=== PATIENT | female | born 1965 | race Caucasian/White ===

== ENCOUNTER 2022-07-21 14:23 | Inpatient (IN) | payer OTHER ==
[2022-07-21 14:42] VITALS: BMI 33.2
[2022-07-21] MEDS ORDERED: Ondansetron ODT 4 MG TAB PO PRN (15:29)
[2022-07-21] MEDS ORDERED: Acetaminophen 325 MG TAB PO PRN (15:29)
[2022-07-21] MEDS ORDERED: Nitroglycerin 0.4 MG TAB (25 Tab Bottle) SL PRN (15:30)
[2022-07-21] MEDS ORDERED: ALPRAZolam 0.25 MG TAB PO PRN (15:31)
[2022-07-21] MEDS ORDERED: Communication Order-Pharmacy FS SCH ×3 (15:31→16:45)
[2022-07-21] MEDS ORDERED: Electrolyte Replacement Protocol 1 EACH FS SCH (16:00)
[2022-07-21 16:10] LABS: CKMB 12.2 ng/mL (0-6.6)
[2022-07-21] MEDS: ALPRAZolam 0.25 MG TAB PO SCH (20:23)
[2022-07-21] MEDS ORDERED: Enoxaparin Sodium 80 MG/0.8 ML SYRINGE SC SCH (21:00)
[2022-07-21] MEDS: Metoprolol Tartrate 25 MG TAB PO SCH (21:02)
[2022-07-21] MEDS ORDERED: Magnesium 2 GM/50 ML(in water) 2 GM in Premix Bag 1 BAG IVPB SCH (23:59)
[2022-07-22] MEDS: ALPRAZolam 0.25 MG TAB PO SCH ×2 (05:35→21:24)
[2022-07-22] MEDS: Metoprolol Tartrate 25 MG TAB PO SCH ×2 (05:35→21:23)
[2022-07-22] MEDS: Aspirin Chewable 81 MG TAB PO SCH (05:35)
[2022-07-22 07:09] LABS: #Basophils 0.1 thou/uL (0.0-0.2); #Eosinphils 0.1 thou/uL (0.0-0.7); #Lymphocytes 2.2 thou/uL (1.20-3.40); #Monocytes 0.4 thou/uL (0.11-0.59); #Neutrophils 2.4 thou/uL (1.40-6.50); %Basophils 1.2 % (0.0-1.0); %Eosinophils 2.3 % (0.0-10.0); %Lymphocytes 42.2 % (21.0-51.0); %Monocytes 7.9 % (0.0-10.0); %Neutrophils 46.3 % (42.0-75.0); Hemoglobin 13.8 g/dL (12.0-16.0); Mean Corpuscular HGB CONC 33.2 g/dL (32.0-36.0); Mean Corpuscular Volume 84.3 fl (78.0-98.0); Mean Platelet Volume 7.3 fL (7.4-10.4); Platelet Count 234 10x3/uL (130-400); RBC Distribution Width 13.8 % (11.5-14.5); Red Blood Cell (RBC) Count 4.92 mill/uL (4.20-5.40); White Blood Cell (WBC) Count 5.1 10x3/uL (4.8-10.8)
[2022-07-22 07:27] LABS: Anion Gap 9 mmol/L (10-20); BUN (Urea Nitrogen) 18 mg/dL (9.8-20.1); Calc. Creatinine Clearance 108 mL/min (70-130); Calcium 9.4 mg/dL (7.8-10.44); Carbon Dioxide 30 mmol/L (22-29); Cardiac Risk 6.2 (Less than 4.5); Chloride 104 mmol/L (98-107); Cholesterol 210 mg/dl (< 200 Desired); Estimated GFR 95; Glucose 96 mg/dL (70-105); HDL Cholesterol 34 mg/dL (>60 Neg Risk); LDL Cholesterol, Calculated 139 mg/dL; Magnesium 2.6 mg/dL (1.6-2.6); Potassium 4.3 mmol/L (3.5-5.1); Sodium 139 mmol/L (136-145); Triglycerides 187 mg/dL (Less than 150)
[2022-07-22] MEDS ORDERED: Lidocaine 1% (PF) 30 ML VIAL ONE (07:48)
[2022-07-22] MEDS ORDERED: Fentanyl 100 MCG/2 ML VIAL ONE (08:09)
[2022-07-22] MEDS ORDERED: Nitroglycerin 100MG/250ML BOT 0 ML ONE (08:09)
[2022-07-22] MEDS ORDERED: Midazolam HCl 2 mg/2 ml Vial ONE (08:09)
[2022-07-22] MEDS ORDERED: Heparin 10,000 UNITS/ 10 ML VIAL ONE (08:12)
[2022-07-22] MEDS ORDERED: Iopamidol 370 76% 100 ML VIAL ONE (11:07)
[2022-07-22] MEDS: Lisinopril/Hydrochlorothiazide 20/25 mg Tablet PO SCH (16:57)
[2022-07-22] MEDS: Atorvastatin Calcium 40 MG TAB PO SCH (21:24)
[2022-07-23 05:19] LABS: #Eosinphils 0.1 thou/uL (0.0-0.7); #Lymphocytes 2.9 thou/uL (1.20-3.40); #Monocytes 0.4 thou/uL (0.11-0.59); #Neutrophils 2.5 thou/uL (1.40-6.50); %Basophils 0.7 % (0.0-1.0); %Eosinophils 1.6 % (0.0-10.0); %Monocytes 6.3 % (0.0-10.0); %Neutrophils 42.4 % (42.0-75.0); Hemoglobin 13.2 g/dL (12.0-16.0); Mean Corpuscular Hemoglobin 26.8 pg (27.0-31.0); Mean Corpuscular Volume 83.8 fl (78.0-98.0); Mean Platelet Volume 7.6 fL (7.4-10.4); Platelet Count 253 10x3/uL (130-400); RBC Distribution Width 13.9 % (11.5-14.5); Red Blood Cell (RBC) Count 4.93 mill/uL (4.20-5.40); White Blood Cell (WBC) Count 5.9 10x3/uL (4.8-10.8)
[2022-07-23 05:35] LABS: Anion Gap 10 mmol/L (10-20); BUN (Urea Nitrogen) 24 mg/dL (9.8-20.1); Calc. Creatinine Clearance 111 mL/min (70-130); Calcium 9.4 mg/dL (7.8-10.44); Carbon Dioxide 26 mmol/L (22-29); Chloride 107 mmol/L (98-107); Estimated GFR 98; Glucose 105 mg/dL (70-105); Potassium 4.3 mmol/L (3.5-5.1); Sodium 139 mmol/L (136-145)
[2022-07-23] MEDS: ALPRAZolam 0.25 MG TAB PO SCH ×2 (08:30→22:30)
[2022-07-23] MEDS: Metoprolol Tartrate 25 MG TAB PO SCH ×2 (08:30→22:30)
[2022-07-23] MEDS: Aspirin Chewable 81 MG TAB PO SCH (08:30)
[2022-07-23] MEDS: Lisinopril/Hydrochlorothiazide 20/25 mg Tablet PO SCH (08:30)
[2022-07-23] MEDS: Atorvastatin Calcium 40 MG TAB PO SCH (22:30)
[2022-07-24] MEDS: Aspirin Chewable 81 MG TAB PO SCH (08:39)
[2022-07-24] MEDS: ALPRAZolam 0.25 MG TAB PO SCH (08:39)
[2022-07-24] MEDS: Metoprolol Tartrate 25 MG TAB PO SCH (08:40)
[2022-07-24] MEDS ORDERED: Icosapent Ethyl 1 GM CAPSULE PO SCH (09:00)
[2022-07-24] MEDS ORDERED: Lisinopril/Hydrochlorothiazide 20/25 mg Tablet PO SCH (09:00)
[2022-07-24 16:45] VITALS: BP 94/50; TEMP 97.9
== END 2022-07-24 19:28 | disposition short-term general hospital (02) | DRG 282 ==
LOC: 2SW 14:23 → OBSVTOIN 07-22 10:30
PROVIDERS: ADMIT Hospitalist; ATTEND Internal Medicine
PROC: 4A023N7 Measurement of Cardiac Sampling and Pressure, Left Heart, Percutaneous Approach (ICD-10-PCS; principal; 2022-07-22)
PROC: B2111ZZ Fluoroscopy of Multiple Coronary Arteries using Low Osmolar Contrast (ICD-10-PCS; 2022-07-22)
PROC: B2151ZZ Fluoroscopy of Left Heart using Low Osmolar Contrast (ICD-10-PCS; 2022-07-22)
DX: I21.4 Non-ST elevation (NSTEMI) myocardial infarction (principal); I10 Essential (primary) hypertension; F41.9 Anxiety disorder, unspecified; F17.210 Nicotine dependence, cigarettes, uncomplicated; F32.A Depression, unspecified; E78.5 Hyperlipidemia, unspecified; I25.10 Atherosclerotic heart disease of native coronary artery without angina pectoris; Z82.49 Family history of ischemic heart disease and other diseases of the circulatory system; Z88.1 Allergy status to other antibiotic agents; Z79.899 Other long term (current) drug therapy; Z88.8 Allergy status to other drugs, medicaments and biological substances; Z90.710 Acquired absence of both cervix and uterus; Z98.51 Tubal ligation status; Z98.890 Other specified postprocedural states; Z20.822 Contact with and (suspected) exposure to COVID-19
CPT/HCPCS: 36415; 80048; 80061; 82553; 83735; 84443; 85025; 85379; 93306; 93458; 93970; 94760; 96365; 96366; 96372; 97139; 99152; C1769; G0378; J1644; J1650; J2001; J2250; J3010; J3475; Q9967; U0003; U0005